=== PATIENT | female | born 1950 | race Caucasian/White ===

== ENCOUNTER 2017-03-06 23:38 | Emergency (ER) | payer MEDICARE, MEDICAID ==
[2017-03-06 23:48] VITALS: TEMP 99.2
[2017-03-07 00:12] LABS: BASOPHILS % (AUTO) 1 % (0-3); EOSINOPHILS % (AUTO) 0 % (0-9); HEMATOCRIT 35 % (35-47); MEAN CORPUSCULAR HGB CONC 34.9 gm/dl (32.0-36.0); MEAN CORPUSCULAR VOLUME 96 fL (81-99); MONOCYTES % (AUTO) 4.6 % (0-12); NEUTROPHILS % (AUTO) 69.4 % (37-80)
[2017-03-07 00:14] LABS: CALCIUM 8.7 mg/dl (8.5-10.1); GLOM FILT RATE 108 mL/min (>60); POTASSIUM 3.3 mMol/L (3.5-5.1); SODIUM 139 mMol/L (136-145)
[2017-03-07] MEDS ORDERED: PREDNISONE 20 MG TAB PO ONE (01:00)
[2017-03-07] MEDS ORDERED: AZITHROMYCIN 250 MG TAB PO ONE (01:00)
[2017-03-07] MEDS ORDERED: PREDNISONE 20 MG TAB ONE (01:16)
[2017-03-07] MEDS ORDERED: AZITHROMYCIN 250 MG TAB ONE (01:16)
[2017-03-07] MEDS ORDERED: ONDANSETRON 4 MG ODT ONE (01:44)
[2017-03-07] MEDS ORDERED: ONDANSETRON 4 MG ODT BU ONE (01:44)
[2017-03-07 01:50] VITALS: BP 135/60; PULSE 76; RESP 22; O2SAT 93
== END 2017-03-07 01:47 | DRG 153 ==
LOC: ED 23:38
DX: J06.9 Acute upper respiratory infection, unspecified (principal); R07.89 Other chest pain
CPT/HCPCS: 36415; 71010; 80048; 84484; 85025; 99283

== ENCOUNTER 2017-03-14 09:36 | Emergency (ER) | payer MEDICARE, MEDICAID ==
[2017-03-14 09:43] VITALS: RESP 24; TEMP 99.6; O2SAT 99
[2017-03-14 09:50] VITALS: PULSE 81
[2017-03-14 10:30] LABS: HEMATOCRIT 39 % (35-47); MEAN CORPUSCULAR HGB CONC 34.9 gm/dl (32.0-36.0); MEAN CORPUSCULAR VOLUME 96 fL (81-99)
[2017-03-14 10:47] LABS: BASOPHILS % (MANUAL) 2 % (0-3); EOSINOPHILS % (MANUAL) 1 % (0-9); LYMPHOCYTES % (MANUAL) 35 % (10-50); NORMAL RBCS PRESENT
[2017-03-14 10:53] LABS: ALBUMIN 3.4 gm/dl (3.4-5.0); ALT 15 IU/L (14-63); CALCIUM 8.9 mg/dl (8.5-10.1); GLOM FILT RATE 120 mL/min (>60); POTASSIUM 4.4 mMol/L (3.5-5.1); SODIUM 140 mMol/L (136-145)
[2017-03-14 10:56] LABS: APPEARANCE,URINE Slightly Cloudy; BILIRUBIN,URINE NEGATIVE (NEGATIVE); COLOR,URINE Yellow; GLUCOSE, URINE (UA) NEGATIVE (NEGATIVE); KETONES,URINE NEGATIVE (NEGATIVE); LEUKOCYTE ESTERASE ,URINE TRACE (NEGATIVE); NITRATE,URINE NEGATIVE (NEGATIVE); OCCULT BLOOD,URINE NEGATIVE (NEG-TRACE); PH,URINE 7.5; UROBILINOGEN,URINE 0.2 (0.2-1.0 EU)
[2017-03-14] MEDS ORDERED: PROCHLORPERAZINE MALEATE 5 MG TAB PO ONE (10:59)
[2017-03-14] MEDS ORDERED: PROCHLORPERAZINE MALEATE 5 MG TAB ONE (11:00)
[2017-03-14 11:08] LABS: RBC,URINE NEG (0-3AV/HPF)
[2017-03-14] MEDS ORDERED: LORAZEPAM 0.5 MG TAB PO ONE (11:49)
[2017-03-14] MEDS ORDERED: LORAZEPAM 0.5 MG TAB ONE (11:50)
[2017-03-14 12:11] VITALS: BP 131/80
== END 2017-03-14 12:01 | DRG 392 ==
LOC: ED 09:36
DX: K29.00 Acute gastritis without bleeding (principal)
CPT/HCPCS: 36415; 80053; 81001; 84484; 85007; 85027; 99283; Q0164

== ENCOUNTER 2017-04-12 18:53 | Emergency (ER) | payer MEDICARE, MEDICAID ==
[2017-04-12] MEDS ORDERED: PROCHLORPERAZINE EDISYLATE 5 MG/ML SOL IV ONE (19:47)
[2017-04-12] MEDS ORDERED: PROCHLORPERAZINE EDISYLATE 5 MG/ML SOL ONE (19:48)
[2017-04-12 19:57] LABS: HEMATOCRIT 35 % (35-47); MEAN CORPUSCULAR HGB CONC 36.1 gm/dl (32.0-36.0); MEAN CORPUSCULAR VOLUME 93 fL (81-99)
[2017-04-12 20:07] LABS: ALBUMIN 3.1 gm/dl (3.4-5.0); CALCIUM 8.5 mg/dl (8.5-10.1); POTASSIUM 3.1 mMol/L (3.5-5.1)
[2017-04-12] MEDS ORDERED: LORAZEPAM 0.5 MG TAB PO ONE (20:14)
[2017-04-12] MEDS ORDERED: SODIUM CHLORIDE 0.9% FLUSH 10 ML SOL IV PRN (20:15)
[2017-04-12] MEDS ORDERED: LORAZEPAM 0.5 MG TAB ONE (20:17)
[2017-04-12 20:20] LABS: BASOPHILS % (MANUAL) 0 % (0-3); EOSINOPHILS % (MANUAL) 0 % (0-9); LYMPHOCYTES % (MANUAL) 28 % (10-50); NORMAL RBCS PRESENT
[2017-04-12] MEDS ORDERED: DIPHENHYDRAMINE 50 MG/ML SOL ONE (20:50)
[2017-04-12] MEDS ORDERED: DIPHENHYDRAMINE 25 MG CAP PO ONE (20:50)
[2017-04-12 20:59] LABS: APPEARANCE,URINE Slightly Cloudy; BILIRUBIN,URINE NEGATIVE (NEGATIVE); COLOR,URINE Yellow; GLUCOSE, URINE (UA) NEGATIVE (NEGATIVE); KETONES,URINE NEGATIVE (NEGATIVE); LEUKOCYTE ESTERASE ,URINE NEGATIVE (NEGATIVE); NITRATE,URINE NEGATIVE (NEGATIVE); OCCULT BLOOD,URINE NEGATIVE (NEG-TRACE); PH,URINE 7.5; UROBILINOGEN,URINE 0.2 (0.2-1.0 EU)
[2017-04-12 21:02] LABS: RBC,URINE 0-2 (0-3AV/HPF)
[2017-04-12 21:42] VITALS: TEMP 99.8
[2017-04-12 22:38] VITALS: BP 153/75; PULSE 93; RESP 28; O2SAT 94
[2017-04-12] MEDS ORDERED: POTASSIUM CHLORIDE 10 MEQ TER PO ONE (23:13)
[2017-04-12] MEDS ORDERED: POTASSIUM CHLORIDE 10 MEQ TER ONE (23:15)
== END 2017-04-13 | DRG 880 ==
LOC: ED 18:53
DX: F41.9 Anxiety disorder, unspecified (principal)
CPT/HCPCS: 36415; 80053; 81001; 85007; 85027; 96374; 99284; J0780; J1200